=== PATIENT | female | born 1980 | race Hispanic/Latino ===

== ENCOUNTER 2020-09-26 19:01 | Emergency (ER) | payer MEDICARE, MEDICAID ==
[2020-09-26] MEDS ORDERED: Ketorolac Tromethamine 30 MG/ML VIAL ONE (19:42)
--- NOTE | 2020-09-26 19:52 | RAD ---
Radiograph right shoulder 3 views: HISTORY: 40-year-old female with history of previous shoulder dislocation presents with acute traumatic right shoulder pain from fall FINDINGS: There is no fracture or dislocation. IMPRESSION: Negative
== END 2020-09-26 20:37 | disposition home or self-care (01) ==
LOC: ERS 19:01
DX: S43.004A Unspecified dislocation of right shoulder joint, initial encounter (principal); I10 Essential (primary) hypertension; F31.9 Bipolar disorder, unspecified; F41.9 Anxiety disorder, unspecified; F43.10 Post-traumatic stress disorder, unspecified; Z79.899 Other long term (current) drug therapy; W19.XXXA Unspecified fall, initial encounter
CPT/HCPCS: 23650; 96372; J1885